=== PATIENT | male | born 1940 | race Caucasian/White ===

== ENCOUNTER 2021-06-12 15:01 | Inpatient (IN) | payer MEDICARE, BC ==
[~2021-06-12] VITALS: Ht 177.8 cm; Wt 80.3 kg
--- NOTE | 2021-06-12 15:15 | NUR ---
RN-ADMISSION NOTES ADMITTED A 80 YEARS OLD MALE PATIENT FROM [facility]. PATIENT ON 5150 FOR GD ADULT. UPON FACE TO FACE ASSESSMENT PATIENT A/O X3 WITH CONFUSION.PATIENT WAS COOPERATIVE BUT EASILY IRRITABLE DURING ADMISSION PROCESS.CONTRABAND AND FULL BODY ASSESSMENT DONE. MRSA DONE AND SEND TO LAB.PATIENT ABLE TO AMBULATE TO THE BATHROOM WITH WALKER. PATIENT DENIES SI/HI DURING THE ASSESSMENT. PATIENT'S RIGHT AND ADVISEMENT WAS GIVEN TO THE PATIENT.PATIENT WAS ORIENTED IN THE UNIT AND UNIT POLICIES. PATIENT ISAC WAS MADE AWARE OF THE ADMISSION. AND PRAFUL BORDEN WAS MADE AWARE OF THE ADMISSION. WILL ENDORSE TO INCOMING NURSE FOR THE CONTINUITY OF CARE AND ADMISSION PROCESS.
[2021-06-12] MEDS ORDERED: MAG HYDROX/AL HYDROX/SIMETH 30 ML UDC PO PRN (15:30)
[2021-06-12] MEDS ORDERED: ACETAMINOPHEN 325 MG TABLET PO PRN (15:30)
[2021-06-12] MEDS ORDERED: MONT10TA22 PO (15:31)
[2021-06-12] MEDS ORDERED: TAMS-12 PO (15:31)
[2021-06-12] MEDS ORDERED: AMLO5TAB4 PO (15:31)
[2021-06-12] MEDS ORDERED: CEFD300C3 PO (16:17)
[2021-06-12] MEDS ORDERED: BLOOD SUGAR DIAGNOSTIC 1 EACH STRIP IN ONE (16:30)
[2021-06-12] MEDS ORDERED: HOME MED MISCELLANEOUS XX SCH (19:30)
[2021-06-12 20:00] VITALS: BP 117/73
[2021-06-12] MEDS: MAGNESIUM HYDROXIDE 30 ML UDC PO PRN (22:21)
--- NOTE | 2021-06-12 22:23 | NUR ---
GPS RN NOTES: PATIENT C/O CONSTIPATION. MOM 30ML GIVEN PO AT 2221. WILL CONTINUE TO MONITOR.
[2021-06-12] MEDS: TRAZODONE 50 MG TABLET PO SCH (23:57)
[2021-06-12] MEDS: LITHIUM CARBONATE 150 MG CAPSULE PO SCH (23:57)
[2021-06-13 07:10] LABS: CHOLESTEROL 105 mg/dL (<200); HDL CHOLESTEROL 27 mg/dL (40-60); LDL 65 mg/dL (0-99); TRIGLYCERIDES 111 mg/dL (30-150)
[2021-06-13 07:23] LABS: ALBUMIN 3.3 g/dL (3.4-5.0); BILIRUBIN,TOTAL 0.7 mg/dL (0.2-1.0); CALCIUM, SERUM 8.7 mg/dL (8.5-10.1); CREATININE 1.1 mg/dL (0.6-1.3); POTASSIUM 3.8 mmol/L (3.5-5.1); TOTAL PROTEIN, SERUM 6.4 g/dL (6.4-8.2)
[2021-06-13 08:00] VITALS: BP 120/70
[2021-06-13] MEDS: TAMSULOSIN 0.4 MG CAP.SR.24H PO SCH (08:26)
[2021-06-13] MEDS: CEFUROXIME AXETIL 250 MG TABLET PO SCH ×2 (08:26→16:33)
[2021-06-13] MEDS: MONTELUKAST SODIUM (10MG) 10 MG TABLET PO SCH (08:26)
[2021-06-13] MEDS: LITHIUM CARBONATE 150 MG CAPSULE PO SCH ×2 (08:27→21:41)
[2021-06-13] MEDS: AMLODIPINE BESYLATE 5 MG TABLET PO SCH (08:27)
--- NOTE | 2021-06-13 10:11 | NUR ---
SW Initial Discharge Plan: Patient is currently homeless. Patient will need placement. Patient will work with the MD, family, and patient to help coordinate appropriate discharge.
--- NOTE | 2021-06-13 10:22 | NUR ---
Treatment Plan: Pt appeared labile and suspicious he refused to sign treatment plan.
--- NOTE | 2021-06-13 10:23 | NUR ---
SW Admit Source: Pt was at [facility] and was refusing to leave the hotel. Pt has no money and any support to help. Pt was confused and has history of mental health issues/substance. Pt is currently homeless and will need placement. Pt placed on a 5150 hold for GD.
--- NOTE | 2021-06-13 10:26 | NUR ---
Social Work Note/Substance Abuse Intervention: Patient was provided with a brief substance abuse intervention and referred to [facility] ([phone]), [facility] ([phone]), and [facility] ([phone]) for drinking occasionally.
--- NOTE | 2021-06-13 11:01 | NUR ---
APS Contact: SW contacted patient's APS egg caser Virginie ([phone]) and left a detailed voicemail to call this auto service writer back.
--- NOTE | 2021-06-13 11:55 | NUR ---
RN-NOTES RECEIVED T.O ORDER FROM FOR NEURO CONSULT. NOTED AND CARRIED OUT.
--- NOTE | 2021-06-13 12:11 | NUR ---
ROSSY Family Contact: ROSSY contacted patient's daughter Fatuma ([phone]) to gather collateral. Fatuma stated that she is the DPOA and will send documents to this SW. Fatuma expressed that patient was living with a roommate but is no longer welcomed back. Pt has [place]. Pt has been off his medications for about 15 years. Pt has history of abusing cocaine. Pt is an alcoholic, currently. 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 Fatuma stated he has been making "bad business deals" and has been losing his money. She did share that his cards do not work currently and he has no money. She expressed that he was staying at [facility] for 14 days and was not taking care of himself (not eating or showering). Fatuma stated that she is living in the [facility] and wants her father to get proper treatment. Fatuma stated it is difficult for her to handle this case because she is a single mother and who is running her own business. ROSSY stated that this instructional writer will give options to pt. Fatuma stated that she may feel that pt has is developing dementia. She requested Neuro Consult. ROSSY notified ISREAL Gurrola and notified Dr. Brito.
--- NOTE | 2021-06-13 12:11 | NUR ---
APS Contact: SW contacted patient's APS telephonic nurse case manager Virginie ([phone]) who stated that she does not have an open case and it has been closed.
--- NOTE | 2021-06-13 14:00 | NUR ---
RN-NOTES DR. CLARK MADE AWARE ( NEURO MD) .
--- NOTE | 2021-06-13 14:04 | NUR ---
APS: ROSSY made APS report though [facility] (Intake ID [id number]) for self-neglect.
--- NOTE | 2021-06-13 15:39 | NUR ---
DPOA Documents: SW received DPOA documents from patient's daughter Fatuma ([phone]) and is the DPOA for patient's finances not for medical.
[2021-06-13 16:00] VITALS: BP 115/70
[2021-06-13 20:00] VITALS: BP 125/67
[2021-06-13] MEDS: TRAZODONE 50 MG TABLET PO SCH (21:41)
[2021-06-13] MEDS: MAGNESIUM HYDROXIDE 30 ML UDC PO PRN (21:53)
[2021-06-14] MEDS: TEMAZEPAM 7.5 MG CAPSULE PO PRN (00:03)
--- NOTE | 2021-06-14 00:03 | NUR ---
GPS RN NOTES: INSOMNIA PATIENT C/O INABILITY TO SLEEP. RESTORIL 15MG PO GIVEN PRN ORDER. WILL CONTINUE TO MONITOR.
[2021-06-14 08:00] VITALS: BP 121/67
[2021-06-14] MEDS: LITHIUM CARBONATE 150 MG CAPSULE PO SCH ×2 (08:18→21:38)
[2021-06-14] MEDS: TAMSULOSIN 0.4 MG CAP.SR.24H PO SCH (08:18)
[2021-06-14] MEDS: CEFUROXIME AXETIL 250 MG TABLET PO SCH ×2 (08:18→16:22)
[2021-06-14] MEDS: AMLODIPINE BESYLATE 5 MG TABLET PO SCH (08:18)
[2021-06-14] MEDS: MONTELUKAST SODIUM (10MG) 10 MG TABLET PO SCH (08:18)
[2021-06-14] MEDS: LORAZEPAM 0.5 MG TABLET PO PRN (14:55)
--- NOTE | 2021-06-14 14:57 | NUR ---
RN-NOTES NOTED PATIENT TALKING TO SELF IN THE ROOM,ANGRY AND IRRITABLE. REDIRECTED AND ATIVAN 1MG P.O GIVEN PRN ORDER. WILL CONT. MONITORING FOR SAFETY AND BEHAVIOR.
[2021-06-14 16:00] VITALS: BP 139/82
--- NOTE | 2021-06-14 16:00 | NUR ---
RN-NOTES PATIENT LYING IN BED AWAKE,ALERT ,CALM, NO ACUTE DISTRESS NOTED.
[2021-06-14 20:00] VITALS: BP 137/67
[2021-06-14] MEDS: TRAZODONE 50 MG TABLET PO SCH (21:38)
[2021-06-15] MEDS: LITHIUM CARBONATE 150 MG CAPSULE PO SCH ×2 (09:41→21:09)
[2021-06-15] MEDS: TAMSULOSIN 0.4 MG CAP.SR.24H PO SCH (09:42)
[2021-06-15] MEDS: MONTELUKAST SODIUM (10MG) 10 MG TABLET PO SCH (09:42)
[2021-06-15] MEDS: AMLODIPINE BESYLATE 5 MG TABLET PO SCH (09:42)
[2021-06-15] MEDS: CEFUROXIME AXETIL 250 MG TABLET PO SCH ×2 (09:42→17:02)
[2021-06-15 20:00] VITALS: BP 128/69
[2021-06-15] MEDS: TRAZODONE 50 MG TABLET PO SCH (21:34)
--- NOTE | 2021-06-15 21:44 | NUR ---
RN NOTES: PT. REFUSED WEEKLY SKIN REASSESSMENT AND PHOTOS TAKEN, PER PT. DOESN'T NEED TO CHECK , ENCOURAGED X3 RISKS AND BENEFITS EXPLINED , PT. STRONGLY REFUSED , STILL REFUSED, WILL CONTINUE WITH CARE.
[2021-06-15] MEDS: TEMAZEPAM 7.5 MG CAPSULE PO PRN (23:51)
[2021-06-16] MEDS: LORAZEPAM 0.5 MG TABLET PO PRN (04:05)
--- NOTE | 2021-06-16 04:06 | NUR ---
RN NOTES :ANXIETY PT. C/O ANXIOUS , PARANOID,RESTLESS, PRN ATIVAN 1 MG PO GIVEN PER PT. REQUEST,WILL CONTINUE TO MONITOR.
[2021-06-16 08:00] VITALS: BP 116/75
[2021-06-16] MEDS: CEFUROXIME AXETIL 250 MG TABLET PO SCH ×2 (09:39→17:49)
[2021-06-16] MEDS: MONTELUKAST SODIUM (10MG) 10 MG TABLET PO SCH (09:39)
[2021-06-16] MEDS: TAMSULOSIN 0.4 MG CAP.SR.24H PO SCH (09:40)
[2021-06-16] MEDS: AMLODIPINE BESYLATE 5 MG TABLET PO SCH (09:40)
[2021-06-16] MEDS: LITHIUM CARBONATE 150 MG CAPSULE PO SCH ×2 (09:40→21:07)
--- NOTE | 2021-06-16 10:54 | NUR ---
ROSSY Note: ROSSY spoke with patient to discuss discharge and placement. ROSSY explained patient's current situation and he was agreeable of this SW finding a place for pt. Addendum: 06/16/21 at 1054 by ROSSY HARTMANN Patient was agreeable of a nursing facility.
--- NOTE | 2021-06-16 10:57 | NUR ---
ROSSY SNF Referral: ROSSY sent referral to Aditi ([phone]) from [facility]. ROSSY sent clinicals for placement option: H & P, progress notes, and medication list.
--- NOTE | 2021-06-16 11:24 | NUR ---
ROSSY Family Contact: ROSSY contacted patient's daughter Fatuma ([phone]) and this typewriter ribbon winder explained that she is the DPOA for finances. Daughter started yelling at this typewriter ribbon winder. SW explained that she is just for the finances. Daughter was frustrated and concerned. ROSSY explained that pt is accepting to go to a nursing facility.
[2021-06-16 16:00] VITALS: BP 118/77
[2021-06-16 19:42] VITALS: BP 144/77
[2021-06-16] MEDS: TRAZODONE 50 MG TABLET PO SCH (21:55)
[2021-06-17 08:00] VITALS: BP 157/77
[2021-06-17] MEDS: LITHIUM CARBONATE 150 MG CAPSULE PO SCH ×2 (09:23→21:25)
[2021-06-17] MEDS: AMLODIPINE BESYLATE 5 MG TABLET PO SCH (09:23)
[2021-06-17] MEDS: TAMSULOSIN 0.4 MG CAP.SR.24H PO SCH (09:23)
[2021-06-17] MEDS: CEFUROXIME AXETIL 250 MG TABLET PO SCH ×2 (09:23→16:40)
[2021-06-17] MEDS: MONTELUKAST SODIUM (10MG) 10 MG TABLET PO SCH (09:24)
--- NOTE | 2021-06-17 10:00 | NUR ---
Court Hearing: Patient's court hearing for 4900 was today and it was upheld for GD.
--- NOTE | 2021-06-17 11:29 | NUR ---
SW SNF Contact: ROSSY spoke with Aditi ([phone]) from [facility] who stated pt is accepted.
[2021-06-17 16:00] VITALS: BP 143/94
[2021-06-17 20:00] VITALS: BP 140/76
[2021-06-17] MEDS: TRAZODONE 50 MG TABLET PO SCH (21:26)
[2021-06-17] MEDS: TEMAZEPAM 7.5 MG CAPSULE PO PRN (22:01)
--- NOTE | 2021-06-17 22:02 | NUR ---
GPS RN NOTES: PATIENT REQUESTED FOR SLEEP MEDICATION. RESTORIL 15MG GIVEN PO AT 2201. WILL CONTINUE TO MONITOR.
--- NOTE | 2021-06-18 05:52 | NUR ---
GPS RN NOTES: PATIENT REFUSED AM LABS. LABS WILL BE BACK LATER FOR ANOTHER ATTEMPT.
[2021-06-18] MEDS: LITHIUM CARBONATE (300 MG CAP) 300 MG CAPSULE PO SCH ×3 (08:23→16:44)
[2021-06-18] MEDS: TAMSULOSIN 0.4 MG CAP.SR.24H PO SCH (08:23)
[2021-06-18] MEDS: MONTELUKAST SODIUM (10MG) 10 MG TABLET PO SCH (08:23)
[2021-06-18] MEDS: AMLODIPINE BESYLATE 5 MG TABLET PO SCH (08:27)
--- NOTE | 2021-06-18 09:11 | NUR ---
WOUND CARE CONSULT: PT HAS BEEN REFUSING SKIN ASSESSMENT. REVIEWED CHART, NURSING DOCUMENTATION AND PHOTOS WHICH INDICATE REDNESS/RASH TO GROIN FOLDS, PERINEUM, INNER THIGHS. PT HAS REFUSED SHOWER PER NURSING STAFF. RECOMMENDATIONS MADE FOR SKIN PROTECTION. DISCUSSED WITH NURSING STAFF. MD IN AGREEMENT WITH PLAN OF CARE.
[2021-06-18] MEDS ORDERED: Z GUARD REMEDY 4 OZ OINT TP PRN (09:30)
[2021-06-18] MEDS: Z GUARD REMEDY 4 OZ OINT TP SCH (09:30)
--- NOTE | 2021-06-18 09:54 | NUR ---
ROSSY Family Contact: ROSSY contacted patient's daughter Fatuma ([phone]) and notified that pt is accepted at [facility]. She was agreeable with this.
[2021-06-18] MEDS: LORAZEPAM 0.5 MG TABLET PO PRN (13:12)
--- NOTE | 2021-06-18 13:31 | NUR ---
RN-CO: ATIVAN 1 MG PO GIVEN FOR AGITATION.
--- NOTE | 2021-06-18 14:06 | NUR ---
ROSSY Note: ROSSY received a call from Mp Friend ([phone]) who is a friend and is requesting to get information. ROSSY explained that this typewriter assembler has been working with the daughter and they need to discuss this with the daughter. ISREAL Moon received a call from another friend named Damien ([phone]) requesting the same.
--- NOTE | 2021-06-18 14:10 | NUR ---
ROSSY Note: SW attempted to discuss patient's discharge plan and stated this repairer typewriter found him a nursing facility. He began to be verbally abusive and told this repairer typewriter "get the fuck out of my room". Patient is not understanding of his mental illness and is very angry. Patient stated he has an "apartment" but in reality he does not.
--- NOTE | 2021-06-18 15:09 | NUR ---
ROSSY Family Contact: SW received a call from daughter Fatuma ([phone]) who stated that she went to the bank and pt does not have any money. She stated that he has $95.00 dollars only. She stated that pt would need a nursing facility.
[2021-06-18 16:00] VITALS: BP 146/87
[2021-06-18] MEDS: CLOTRIMAZOLE 1% 15 GM TUBE TP SCH (16:43)
--- NOTE | 2021-06-18 16:51 | NUR ---
RN-CO: PATIENT REMAINS NAKED, HE REFUSED TO WEAR CLOTHES NOR HOSPITAL GOWN, FOCUS ON DISCHARGE, HE HAS GRANDIOSITY HE SAID " I WILL BUY YOU A SATELLITE. AND I HAVE MILLIONS IN MY BANK ACCOUNT." HE DOES NOT BELIEVE THAT HE HAS PSYCHOLOGICAL PROBLEM.
[2021-06-18 20:00] VITALS: BP 158/77
[2021-06-18] MEDS: TRAZODONE 50 MG TABLET PO SCH (21:05)
[2021-06-18] MEDS: TEMAZEPAM 7.5 MG CAPSULE PO PRN (22:12)
--- NOTE | 2021-06-18 22:12 | NUR ---
GPS RN NOTES: INSOMNIA PATIENT C/O INABILITY TO SLEEP. RESTORIL 15MG PO GIVEN PRN ORDER. WILL CONTINUE TO MONITOR.
[2021-06-18] MEDS ORDERED: LITHIUM CARBONATE 150 MG CAPSULE PO SCH (23:00)
--- NOTE | 2021-06-18 23:08 | NUR ---
GPS RN NOTES DR. MAN IN THE UNIT ORDERED TO DISCONTINUE LITHIUM 600MG CAP PO Q12HRS AND LITHIUM 300MG CAP PO BID AND START LITHIUM 300MG PO CAP TID. ALL ORDERS NOTED AND CARRIED OUT.
[2021-06-18] MEDS ORDERED: LITHIUM CARBONATE (300 MG CAP) 300 MG CAPSULE PO SCH (23:30)
[2021-06-18] MEDS: risperiDONE 1 MG TABLET PO SCH (23:35)
[2021-06-19 08:00] VITALS: BP 155/78
[2021-06-19] MEDS: Z GUARD REMEDY 4 OZ OINT TP SCH (09:00)
[2021-06-19] MEDS ORDERED: LITHIUM CARBONATE (300 MG CAP) 300 MG CAPSULE PO SCH (09:00)
[2021-06-19] MEDS: CLOTRIMAZOLE 1% 15 GM TUBE TP SCH ×2 (09:00→16:37)
[2021-06-19] MEDS ORDERED: LITHIUM CARBONATE 150 MG CAPSULE PO SCH ×2 (09:00→22:00)
[2021-06-19] MEDS: TAMSULOSIN 0.4 MG CAP.SR.24H PO SCH (11:48)
[2021-06-19] MEDS: risperiDONE 1 MG TABLET PO SCH ×2 (11:48→21:34)
[2021-06-19] MEDS: MONTELUKAST SODIUM (10MG) 10 MG TABLET PO SCH (11:48)
[2021-06-19] MEDS: AMLODIPINE BESYLATE 5 MG TABLET PO SCH (11:49)
--- NOTE | 2021-06-19 14:03 | NUR ---
ROSSY Family Contact: ROSSY received a call from daughter Fatuma ([phone]) who stated that she would [place] facility [place] not [place]. ROSSY stated if she is agreeable with this software writer to send to [facility]. She agreed.
--- NOTE | 2021-06-19 14:04 | NUR ---
SNF Referral: SW sent clinicals to [facility] ([phone]) for placement option. SW sent H & P, progress notes, and medication list.
[2021-06-19 16:11] VITALS: BP 145/79
--- NOTE | 2021-06-19 19:30 | NUR ---
GPS RN NOTE, RECEIVED PATIENT AWAKE AND IN BED, NO S/S OR COMPLAINTS OF PAIN AT THIS TIME. PATIENT IS DISPLAYING NO S/S OF APPARENT DISTRESS AT THIS TIME. PATIENT BREATHING IS UNLABORED WITH EQUAL RISE AND FALL OF THE CHEST. PATIENT IS ALERT AND ORIENTED X 1-2 ON ROOM AIR WITH A SPO2 99%. PATIENT IS COMPLIANT WITH MEDICATIONS, CONFUSED AT TIMES, DISORGANIZED, ACCUSATORY, GRANDIOSE, LABILE, ANXIOUS, MAKES NEEDS KNOWN, AND COOPERATIVE. PATIENT DENIES SUICIDAL AND HOMICIDAL IDEATIONS AT THIS TIME. PATIENT ASSISTED WITH TURNING AND REPOSITIONING Q2HR AND PRN FOR COMFORT AND CIRCULATION. PATIENT HAS NO NEEDS AT THIS TIME. PATIENT EDUCATED ON THE USE OF THE CALL ONEIL. PATIENT BED SIDE RAILS UP X 2 FOR SAFETY. PATIENT BED IS LOCKED, LOW, WITH BED ALARM ON. WILL CONTINUE TO MONITOR THIS PATIENT Q15 MINUTES WITH THE HELP OF STAFF TO MAINTAIN SAFETY.
[2021-06-19 20:00] VITALS: BP 146/74
[2021-06-19] MEDS: DIVALPROEX SODIUM 500 MG TABLET.DR PO SCH (21:34)
[2021-06-19] MEDS: TRAZODONE 50 MG TABLET PO SCH (21:35)
[2021-06-20 08:00] VITALS: BP 134/61
[2021-06-20] MEDS: risperiDONE 1 MG TABLET PO SCH ×2 (08:16→21:17)
[2021-06-20] MEDS: DIVALPROEX SODIUM 500 MG TABLET.DR PO SCH ×2 (08:16→21:17)
[2021-06-20] MEDS: AMLODIPINE BESYLATE 5 MG TABLET PO SCH (08:16)
[2021-06-20] MEDS: MONTELUKAST SODIUM (10MG) 10 MG TABLET PO SCH (08:16)
[2021-06-20] MEDS: TAMSULOSIN 0.4 MG CAP.SR.24H PO SCH (08:18)
--- NOTE | 2021-06-20 08:46 | NUR ---
SNF Contact: SW received a call from Uvaldo from [facility] ([phone]) and stated that pt is accepted.
--- NOTE | 2021-06-20 08:49 | NUR ---
ROSSY Family Contact: ROSSY called patient's daughter Fatuma ([phone]) and left a voicemail that he got accepted at [facility].
[2021-06-20] MEDS: Z GUARD REMEDY 4 OZ OINT TP SCH (09:00)
[2021-06-20] MEDS: CLOTRIMAZOLE 1% 15 GM TUBE TP SCH ×2 (09:00→17:00)
--- NOTE | 2021-06-20 09:21 | NUR ---
Pt. refused Clotrimaxole cream and Remedy Z Guard. Explained on the importance and offered 3x and still refusing and said " I don't Need it". Will continue to monitor.
[2021-06-20] MEDS: MAGNESIUM HYDROXIDE 30 ML UDC PO PRN (15:01)
--- NOTE | 2021-06-20 15:03 | NUR ---
RN-notes PATIENT C/O CONSTIPATION. MAALOX 30ML GIVEN PRN ORDER.
[2021-06-20 16:00] VITALS: BP 133/72
--- NOTE | 2021-06-20 17:48 | NUR ---
Pt. refused for Clotrimazole Cream. Explained on the importance and offered 3x ans still refusing and said " I don't need it".
[2021-06-20 20:00] VITALS: BP 130/79
[2021-06-20] MEDS: TRAZODONE 50 MG TABLET PO SCH (21:17)
[2021-06-20] MEDS ORDERED: risperiDONE 1 MG TABLET PO SCH (23:30)
[2021-06-20] MEDS: TEMAZEPAM 7.5 MG CAPSULE PO PRN (23:44)
--- NOTE | 2021-06-20 23:44 | NUR ---
GPS RN NOTES: INSOMNIA PATIENT C/O INABILITY TO SLEEP. RESTORIL 15MG PO GIVEN PRN ORDER. WILL CONTINUE TO MONITOR.
[2021-06-21 05:00] VITALS: BP 141/66
[2021-06-21 08:00] VITALS: BP 141/66
[2021-06-21] MEDS: CLOTRIMAZOLE 1% 15 GM TUBE TP SCH ×2 (08:07→17:46)
[2021-06-21] MEDS: Z GUARD REMEDY 4 OZ OINT TP SCH (08:07)
[2021-06-21] MEDS: AMLODIPINE BESYLATE 5 MG TABLET PO SCH (08:10)
[2021-06-21] MEDS: MONTELUKAST SODIUM (10MG) 10 MG TABLET PO SCH (08:10)
[2021-06-21] MEDS: DIVALPROEX SODIUM 500 MG TABLET.DR PO SCH ×2 (08:10→20:58)
[2021-06-21] MEDS: TAMSULOSIN 0.4 MG CAP.SR.24H PO SCH (08:10)
[2021-06-21] MEDS: risperiDONE 1 MG TABLET PO SCH ×2 (08:10→20:59)
[2021-06-21 16:00] VITALS: BP 137/71
[2021-06-21 19:52] VITALS: BP 145/75
[2021-06-21] MEDS: TRAZODONE 50 MG TABLET PO SCH (21:17)
[2021-06-21] MEDS: TEMAZEPAM 7.5 MG CAPSULE PO PRN (23:49)
--- NOTE | 2021-06-21 23:50 | NUR ---
RN NOTES: INSOMNIA PATIENT C/O UNABLE TO SLEEP. RESTORIL 15 MG PO GIVEN PRN ORDER. WILL CONTINUE TO MONITOR.
[2021-06-22 08:00] VITALS: BP 146/81
[2021-06-22] MEDS: CLOTRIMAZOLE 1% 15 GM TUBE TP SCH ×2 (08:02→17:38)
[2021-06-22] MEDS: risperiDONE 1 MG TABLET PO SCH ×2 (08:04→21:15)
[2021-06-22] MEDS: DIVALPROEX SODIUM 500 MG TABLET.DR PO SCH ×2 (08:04→21:15)
[2021-06-22] MEDS: AMLODIPINE BESYLATE 5 MG TABLET PO SCH (08:04)
[2021-06-22] MEDS: MONTELUKAST SODIUM (10MG) 10 MG TABLET PO SCH (08:04)
[2021-06-22] MEDS: TAMSULOSIN 0.4 MG CAP.SR.24H PO SCH (08:04)
[2021-06-22] MEDS: Z GUARD REMEDY 4 OZ OINT TP SCH (08:05)
[2021-06-22 16:00] VITALS: BP 149/73
[2021-06-22 19:50] VITALS: BP 150/76
[2021-06-22] MEDS: TRAZODONE 50 MG TABLET PO SCH (21:15)
[2021-06-22] MEDS: TEMAZEPAM 7.5 MG CAPSULE PO PRN (23:19)
[2021-06-23] MEDS: TEMAZEPAM 7.5 MG CAPSULE PO PRN (01:14)
[2021-06-23 08:00] VITALS: BP 163/96
[2021-06-23] MEDS: CLOTRIMAZOLE 1% 15 GM TUBE TP SCH ×2 (08:17→17:04)
[2021-06-23] MEDS: MONTELUKAST SODIUM (10MG) 10 MG TABLET PO SCH (08:21)
[2021-06-23] MEDS: risperiDONE 1 MG TABLET PO SCH ×2 (08:21→20:16)
[2021-06-23] MEDS: DIVALPROEX SODIUM 500 MG TABLET.DR PO SCH ×2 (08:21→20:16)
[2021-06-23] MEDS: TAMSULOSIN 0.4 MG CAP.SR.24H PO SCH (08:21)
[2021-06-23] MEDS: AMLODIPINE BESYLATE 5 MG TABLET PO SCH (08:22)
[2021-06-23] MEDS: Z GUARD REMEDY 4 OZ OINT TP SCH (09:26)
--- NOTE | 2021-06-23 13:10 | NUR ---
ROSSY Family Contact: SW received a call from patient's daughter Fatuma ([phone]) and she reported that she will be arriving July 05 for four days to visit pt. She is agreeable of pt going to [facility].
--- NOTE | 2021-06-23 13:14 | NUR ---
APS: SW received a call from APS case resolution specialist Zulema ([phone]) and stated she cannot do much and if the pt wants to be discharged the pt has the right too. She stated that she will follow up with the daughter.
[2021-06-23 16:00] VITALS: BP 147/81
[2021-06-23 19:55] VITALS: BP 150/95
[2021-06-23] MEDS: TRAZODONE 50 MG TABLET PO SCH (21:31)
--- NOTE | 2021-06-23 21:32 | NUR ---
GPS RN NOTES: PATIENT TRAZODONE ORDER FOR 2200 IS 100MG. MISTAKINGLY TOOK OUT 50MG BUT WENT BACK AND TOOK ANOTHER 50MG TO MAKE IT 100MG.
[2021-06-24 08:00] VITALS: BP 164/95
[2021-06-24] MEDS: risperiDONE 1 MG TABLET PO SCH ×2 (08:31→20:38)
[2021-06-24] MEDS: AMLODIPINE BESYLATE 5 MG TABLET PO SCH (08:31)
[2021-06-24] MEDS: TAMSULOSIN 0.4 MG CAP.SR.24H PO SCH (08:32)
[2021-06-24] MEDS: DIVALPROEX SODIUM 500 MG TABLET.DR PO SCH ×2 (08:32→20:38)
[2021-06-24] MEDS: MONTELUKAST SODIUM (10MG) 10 MG TABLET PO SCH (08:32)
[2021-06-24] MEDS: Z GUARD REMEDY 4 OZ OINT TP SCH (09:00)
[2021-06-24] MEDS: CLOTRIMAZOLE 1% 15 GM TUBE TP SCH ×2 (09:27→17:54)
--- NOTE | 2021-06-24 14:03 | NUR ---
PHARMACY: [facility] ([phone]) [facility] [address] [address] [place] [address]. Addendum: 06/24/21 at 1404 by ROSSY HARTMANN wrong patient
[2021-06-24 16:00] VITALS: BP 131/74
[2021-06-24 20:00] VITALS: BP 144/82
[2021-06-24] MEDS: TRAZODONE 50 MG TABLET PO SCH (21:16)
[2021-06-24] MEDS: TEMAZEPAM 7.5 MG CAPSULE PO PRN (23:10)
--- NOTE | 2021-06-24 23:12 | NUR ---
GPS RN NOTES: PATIENT REQUESTED FOR SLEEP MEDICATION. RESTORIL 7.5MG GIVEN PO AT 2310. WILL CONTINUE TO MONITOR.
[2021-06-25 08:00] VITALS: BP 143/77
[2021-06-25] MEDS: Z GUARD REMEDY 4 OZ OINT TP SCH (08:24)
[2021-06-25] MEDS: risperiDONE 1 MG TABLET PO SCH ×2 (08:28→20:33)
[2021-06-25] MEDS: DIVALPROEX SODIUM 500 MG TABLET.DR PO SCH ×2 (08:28→20:28)
[2021-06-25] MEDS: AMLODIPINE BESYLATE 5 MG TABLET PO SCH (08:28)
[2021-06-25] MEDS: MONTELUKAST SODIUM (10MG) 10 MG TABLET PO SCH (08:28)
[2021-06-25] MEDS: TAMSULOSIN 0.4 MG CAP.SR.24H PO SCH (08:28)
--- NOTE | 2021-06-25 08:38 | NUR ---
ROSSY Family Contact: ROSSY contacted patient's daughter Ftauma ([phone]) and notified that pt will be discharged to [facility]. She is agreeable with this plan.
[2021-06-25] MEDS: CLOTRIMAZOLE 1% 15 GM TUBE TP SCH ×2 (08:57→17:00)
[2021-06-25 16:00] VITALS: BP 136/77
[2021-06-25 20:00] VITALS: BP_SYST 138; BP_SYST 148; BP_DIAS 82
[2021-06-25] MEDS: TRAZODONE 50 MG TABLET PO SCH (21:25)
[2021-06-26 08:00] VITALS: BP 149/84
[2021-06-26] MEDS: TAMSULOSIN 0.4 MG CAP.SR.24H PO SCH (08:07)
[2021-06-26 08:08] VITALS: BP 149/84
[2021-06-26] MEDS: DIVALPROEX SODIUM 500 MG TABLET.DR PO SCH (08:08)
[2021-06-26] MEDS: AMLODIPINE BESYLATE 5 MG TABLET PO SCH (08:08)
[2021-06-26] MEDS: risperiDONE 1 MG TABLET PO SCH (08:08)
[2021-06-26] MEDS: MONTELUKAST SODIUM (10MG) 10 MG TABLET PO SCH (08:08)
--- NOTE | 2021-06-26 08:10 | NUR ---
SW Discharge Note: Patient will be discharged to fpc facility [facility], [place] [address]; ). Please arrange transportation at 1PM. Jacquard Twine Polisher Operator spoke with Uvaldo blocker and sewer at [facility]; ([phone]), who stated patient will be accepted today. Patients daughter Fatuma ([phone]) is aware and agreeable. Patient is alert and oriented x2 and is unable to plan for self-care. Patient denies any suicidal or homicidal ideations. Patient is aware and agreeable with discharge plans. Patient will continue to follow-up with her (Psychiatrist) Dr. Brito located at [address], [place] [address]; ([phone]) and (manager of planning) Dr. Malik [address], [place] [address]; ([phone]). Patient given resources to [facility] ([phone]), [facility] ([phone]), and [facility] ([phone]) for drinking occasionally. Patient refused to sign the homeless waiver upon discharge and a copy was placed in the chart. Homeless resources were provided and include [address] information line for shelters and homeless resources. A copy of all resources given to patient was also placed in the chart. Patient presents with euthymic mood and congruent affect. Patient presents with euthymic and congruent mood.
[2021-06-26] MEDS: CLOTRIMAZOLE 1% 15 GM TUBE TP SCH (08:13)
[2021-06-26] MEDS: Z GUARD REMEDY 4 OZ OINT TP SCH (09:49)
--- NOTE | 2021-06-26 12:01 | NUR ---
RN-NOTES RECEIVED T.O DISCHARGE ORDER FROM DR. MAN. NOTED AND CARRIED OUT.
--- NOTE | 2021-06-26 14:25 | NUR ---
RN-DISCHARGE NOTES PATIENT HAD A DISCHARGE ORDER FRO DR. MAN (PHSYCHIATRIST),OFFICE ASSOCIATE CLARE (HEEL COVERER MACHINE OPERATOR) MEDICALLY CLEARED PATIENT FOR DISCHARGE. PATIENT DID NOT VERBALIZE SI/HI,DENIES VISUAL/AUDITORY HALLUCINATIONS AT THE TIME OF DISCHARGE. REPORT WAS GIVEN TO ALICIA (PIPE MANUFACTURE SUPERVISOR )FACILITY STAFF. PATIENT WAS FERMENTING CELLARS SUPERVISOR BY AMBULANCE VIA GURNEY BY TWO STAFF ASSIST. PATIENT LEFT THE UNIT IN STABLE CONDITION A/OX3 AMBULATORY STEADY GAIT.LEFT WITH ALL BELONGINGS INCLUDING X1 BLACK CELLPHONE AND WALLET. PER SW NOTES PATIENT'S DTR RICHAR WAS AWARE OF THE DISCHARGE.
== END 2021-06-26 14:25 | DRG 885 ==
LOC: GPS 15:01
PROVIDERS: ADMIT Psychiatry & Neurology Psychiatry; ATTEND Nurse Practitioner Acute Care
DX: F31.64 Bipolar disorder, current episode mixed, severe, with psychotic features (principal); F23 Brief psychotic disorder; Z73.6 Limitation of activities due to disability; F41.9 Anxiety disorder, unspecified; I10 Essential (primary) hypertension; F03.90 Unspecified dementia, unspecified severity, without behavioral disturbance, psychotic disturbance, mood disturbance, and anxiety; R79.89 Other specified abnormal findings of blood chemistry; J44.9 Chronic obstructive pulmonary disease, unspecified; N40.0 Benign prostatic hyperplasia without lower urinary tract symptoms; Z79.899 Other long term (current) drug therapy; R53.1 Weakness; R27.8 Other lack of coordination; Z91.81 History of falling
CPT/HCPCS: 36415; 80053-TC; 80061-TC; 80164-TC; 87081-TC; 97116-TC; 97530-TC